=== PATIENT | male | born 1980 | race Two or more races ===

== ENCOUNTER 2021-02-28 21:16 | Emergency (ER) | payer OTHER ==
[~2021-02-28] VITALS: Ht 175.3 cm; Wt 82.0 kg
[2021-02-28] MEDS ORDERED: CEPHALEXIN MONOHYDRATE 500 MG CAPSULE PO ONE (22:45)
[2021-02-28] MEDS ORDERED: IBUPROFEN 600 MG TABLET PO ONE (22:45)
[2021-02-28] MEDS ORDERED: ACETAMINOPHEN 500 MG TABLET PO ONE (22:45)
[2021-03-01 01:19] VITALS: BP 132/78
[2021-03-01] MEDS ORDERED: DOXYCYCLINE HYCLATE 100 MG TABLET PO ONE (01:30)
[2021-03-01] MEDS ORDERED: PERTUSS(ACELL),DIPH,TET VAC/PF 0.5 ML SYRINGE IM. ONE (01:45)
== END 2021-03-01 02:00 | disposition home or self-care (01) ==
LOC: EMS 21:16
DX: S60.551A Superficial foreign body of right hand, initial encounter (principal); L03.113 Cellulitis of right upper limb; W26.8XXA Contact with other sharp object(s), not elsewhere classified, initial encounter; Y93.89 Activity, other specified; Y92.89 Other specified places as the place of occurrence of the external cause; Y99.8 Other external cause status
CPT/HCPCS: 90471; 90715; 99284